=== PATIENT | male | born 1975 ===

== ENCOUNTER 2017-03-29 19:20 | Inpatient (IN) ==
[~2017-03-29 19:20] MED LIST: LIDOCAINE 100 MG/5 ML SYRINGE ONE; ONDANSETRON 4 MG/2 ML VIAL ONE; PROPOFOL 200 MG/20 ML VIAL IV ONE; ROCURONIUM 100 MG/10 ML VIAL IV ONE
[2017-03-29] MEDS ORDERED: metroNIDAZOLE INJ 500 MG in PREMIX 1 EACH IV STA (19:33)
--- NOTE | 2017-03-29 19:33 | General Surg History&Physical ---
Assessment and Plan (1) Acute appendicitis with localized peritonitis Status: Acute Assessment and plan: Impression: Right lower quadrant abdominal pain secondary to acute appendicitis. Plan: Surgery Current Visit: Yes History of Present Illness Chief complaint: Abdominal pain right lower quadrant History of present illness: Mr. Addison is a 41 year old male male who has been in pretty good health had a vague abdominal discomfort last night and this morning was a little bit worse with some nausea but no vomiting. Pain is gotten worse throughout the day and settled into the right lower quadrant were extremely tender especially when he moves around. Went to [facility] where he was found to have elevated white count of 21,[address] scan of the abdomen and pelvis showed early appendicitis. He is tender with guarding in the right lower quadrant so we will go ahead and plan to taken to surgery and try to remove this appendix. Allergies Allergy/AdvReac Type Severity Reaction Status Date / Time No Known Allergies Allergy Unverified 03/29/17 19:29 Medical,Surgical,& Family Hx - Medical History Medical History: noncontributory - Family History Family History: noncontributory - Social History Functional capacity: independent ambulation Exam - Constitutional Vitals: Period Temp Pulse Resp BP Sys/[place] Pulse Ox Last 24 Hr 99 F 86 16 138/87 98 General appearance: mild distress - Head Head exam: Present: normal inspection - ENT ENT exam: Present: normal exam - Neck Neck exam: Present: normal inspection - Respiratory Respiratory exam: Present: clear to auscultation bilaterally, rales - Cardiovascular Cardiovascular exam: Present: RRR - GI/Abdominal GI/Abdominal exam: Present: guarding, hypoactive bowel sounds, tenderness ( Right lower quadrant), soft - Extremities Exam Extremities exam: Present: normal inspection - Back Exam Back exam: Present: normal inspection - Neurological Exam Neurological exam: Present: alert, oriented X3, CN II-XII intact - Skin Skin exam: Present: normal color, warm 12 point system: reviewed and no additional remarkable complaints except as stated Results - Labs Lab Results: I have reviewed the past 24 hour labs - Diagnostic Findings Procedure: CT Abdomen and Pelvis: report reviewed by me (Outside CT positive for early appendicitis)
[2017-03-29] MEDS ORDERED: ONDANSETRON 4 MG/2 ML VIAL IV PRN (19:36)
[2017-03-29] MEDS ORDERED: HYDROmorphone 2 MG/1 ML VIAL IV PRN ×2 (19:36→23:17)
[2017-03-29] MEDS ORDERED: metroNIDAZOLE 500 MG/100 ML PREMIX IV ONE (19:52)
[2017-03-29] MEDS: LACTATED RINGERS 1,000 ML IV SCH (20:03)
--- NOTE | 2017-03-29 20:13 | XRay Report ---
History: Appendicitis. Respiratory preop evaluation Date: 03/29/2017 Study: Chest x-ray PA and lateral Comparison exam: No previous chest x-ray available The cardiomediastinal silhouette and pulmonary vasculature are unremarkable. The lungs and pleural spaces are clear. The osseous structures are unremarkable. Impression: No acute cardiopulmonary process PROCEDURE INTERPRETED AT [facility] DEPARTMENT OF RADIOLOGY Final Report Signed by: Dr. Francesca Baron
[2017-03-29] MEDS ORDERED: BUPIVACAINE MPF 0.25% /EPI 30 ML VIAL ONE (20:16)
[2017-03-29] MEDS ORDERED: TISSUE ADHESIVE 1 EACH APPLICATOR TOP ONE (20:17)
--- NOTE | 2017-03-29 21:56 | Operative Note ---
Date of procedure: 03/29/17 Pre-op diagnosis: Abdominal pain secondary acute appendicitis Post-op diagnosis: other (Acute appendicitis) Procedure: Operative note: Preoperative diagnosis: Right lower quadrant abdominal pain secondary to probable appendicitis Postoperative diagnosis: Acute appendicitis. Procedure: Laparoscopic appendectomy Surgeon Dr. Chandler Salon Leader Viry Penn, INDUSTRIAL REFRIGERATION MECHANIC ACNP Anesthesia general endotracheal with local Brief history: 41-year-old male with the onset of abdominal pain yesterday is progressed into the right lower quadrant with marked tenderness and guarding in that side. CT scan confirms evidence of early appendicitis in that side. At this point would like to go ahead and bring him to surgery to give him some preop antibiotics. Procedure: With patient in the supine position prepped and draped in sterile fashion timeout and antibiotics completed we approach this area the abdomen. Due to its size and large rotund area like to go above the umbilicus by infiltrated with local anesthetic and taken a knife and incising the skin and the subcutaneous tissue and dissecting down to the fascia. I then incised the fascia and carefully entered the peritoneal cavity under direct vision. Placed a 5 mm trocar in and then filled the abdomen with 3 L of CO2. But the scope and I could see that there was evidence of appendicitis and changes in the right lower quadrant area. At that point I went ahead and place a 5 mm trocar in the mid hypogastric area and direct vision there we put him in Trendelenburg and tilted to the left side position. I then could see where the appendix was at and then we elected to go ahead and place a 12 mm trocar and at the mid axillary line about the level of the umbilicus under direct vision. Once we had that in place then I could grasp the appendix and it was inflamed especially at the base. I had to mobilize the cecum a little bit by incising peritoneal attachments laterally in order to bring this so I could get to the base the appendix. With the appendix elevated up I went across the mesoappendix 3 times with vascular Endo ADEEL staplers in order to divide the mesoappendix securely. Once I did that I was able get the appendix up and go across the base of the appendix with a balloon to GSA stapler. We then took the appendix and placed an Endo Catch bag and pulled out the lateral port. Went back in and washed irrigated this right lower quadrant area but did not see any significant bleeding at this time. We washed out the pelvis little bit as best we could see. At that point we then closed the lateral port with a 0 Monocryl with an Endo Close device in order to close that fascia down under direct vision. I placed another 0 Monocryl in the fascia of the external oblique under direct vision and that lateral port also. With that completed removed our other trochars and went back to the umbilicus port at the epigastrium and closed that fascia down with interrupted 0 Monocryl suture. With that completed we washed out subtenons tissue saline solution we closed subtenons tissue 3-0 Vicryl and closed the skin running 4-0 Monocryl Dermabond was applied the patient taken recovery room. Estimated blood loss 20 cc Sponge count correct 2 Drains none Complications none Condition stable satisfactory Anesthesia: GETA, local (0.25% Marcaine with epinephrine mixed [id number] 1% Xylocaine plain) Surgeon / Physician: Arden Chandler Salon Leader: Viry Penn Estimated blood loss: other (30 cc) Specimens: other (Appendix) Condition: stable Disposition: floor Discharge Plan - Discharge Medications No Action No Known Home Medications [No Known Home Medications] - Follow Up or Referral - Forms/Instructions
--- NOTE | 2017-03-29 22:13 | Anesthesia Post-Op ---
Anesthesia Post OP - Post Ansesthetic Evaluation Patient seen in post op: Yes Resp: within normal limits CV: within normal limits Mental: within normal limits Temp: within normal limits Uazo-Ny-Szcxrvuis: within normal limits Nausea and Vomiting: within normal limits Pain: within normal limits
[2017-03-29] MEDS ORDERED: SEVOFLURANE 1 UNIT/15 MINUTE INH ONE (22:19)
[2017-03-29] MEDS ORDERED: ACETAMINOPHEN 1,000 MG/100 ML VIAL IV ONE (22:19)
[2017-03-29] MEDS ORDERED: MIDAZOLAM 2 MG/2 ML VIAL ONE (22:19)
[2017-03-29] MEDS ORDERED: METOPROLOL TARTRATE 5 MG/5 ML VIAL IV ONE ×2 (22:22→22:27)
[2017-03-29] MEDS ORDERED: hydrALAZINE 20 MG/1 ML VIAL ONE (22:33)
[2017-03-29] MEDS ORDERED: hydrALAZINE 20 MG/1 ML VIAL IV ONE (22:34)
[2017-03-29] MEDS ORDERED: ACETAMINOPHEN 325 MG TABLET PO PRN (23:17)
[2017-03-30] MEDS: KETOROLAC 15 MG/1 ML VIAL IV SCH ×5 (00:13→22:24)
[2017-03-30 03:31] LABS: Basophils % 0.1 % (0.0-0.8); Hematocrit 37.1 VOL% (42.0-52.0); Hemoglobin 12.8 GM/DL (14.0-18.0); Immature Granulocytes % 0.7 %; Immature Granulocytes Absolute 0.17 #; Lymphocytes # 2.1 10*3/uL (1.4-4.0); Lymphocytes % 8.9 % (21.2-54.2); Mean Corpuscular HGB Conc 34.5 GM/DL (32-36); Mean Corpuscular Hemoglobin 30 PG (27-34); Mean Corpuscular Volume 87.9 FL (87-102); Mean Platelet Volume 12.2 FL (9.6-12.0); Monocytes # 1.4 10*3/uL (0.11-0.8); Neutrophils # 20.1 10*3/uL (1.4-7.4); Neutrophils % 84.3 % (38.7-73.9); Platelet Count 215 T/CUMM (130-400); Red Blood Count 4.22 MC/CUMM (3.8-5.5); Red Cell Distribution Width 12.6 % (9.3-17.3); White Blood Count 23.8 T/CUMM (4-12)
[2017-03-30] MEDS: metroNIDAZOLE INJ 500 MG in PREMIX 1 EACH IV SCH ×2 (04:02→11:28)
[2017-03-30] MEDS: LACTATED RINGERS 1,000 ML IV SCH ×2 (04:03→18:35)
[2017-03-30 04:23] LABS: Calcium 8.4 MG/DL (8.5-10.1); Osmolality,Calculated 281.5 MOS/KG (273-304); Potassium 3.8 MMOL/L (3.5-5.1)
[2017-03-30 05:56] LABS: Platelet Estimate Normal
[2017-03-30] MEDS: PANTOPRAZOLE 40 MG TABLET PO SCH (08:20)
[2017-03-30] MEDS ORDERED: PANTOPRAZOLE 40 MG VIAL IV SCH (09:00)
--- NOTE | 2017-03-30 09:32 | Event Note ---
03/30/2017. Patient is stable awake and alert tolerating liquids without problems. Abdomen is soft sore around the incisional site but otherwise unremarkable. Bowel sounds are present no bowel movement to date. His white count still elevated at 23,000 but crits good and stable as well as rest of his labs. Will advance his diet and consider letting him go home tomorrow if everything looks stable at that time.
[2017-03-30] MEDS ORDERED: ENOXAPARIN 40 MG/0.4 ML SYRINGE SUBCUT SCH (15:47)
[2017-03-30] MEDS: DOCUSATE SODIUM 100 MG CAPSULE PO SCH (21:05)
[2017-03-31] MEDS: LACTATED RINGERS 1,000 ML IV SCH ×2 (02:35→10:50)
[2017-03-31] MEDS: KETOROLAC 15 MG/1 ML VIAL IV SCH (04:22)
[2017-03-31 05:57] LABS: Albumin 2.9 G/DL (3.4-5.0); Bilirubin,Total 0.9 MG/DL (0.2-1.0); Calcium 7.7 MG/DL (8.5-10.1); Osmolality,Calculated 280.3 MOS/KG (273-304); Potassium 3.7 MMOL/L (3.5-5.1)
[2017-03-31 06:54] VITALS: BP 162/77
[2017-03-31] MEDS: DOCUSATE SODIUM 100 MG CAPSULE PO SCH (08:33)
[2017-03-31] MEDS: PANTOPRAZOLE 40 MG TABLET PO SCH (08:33)
--- NOTE | 2017-03-31 09:25 | Discharge Summary ---
Hospital Course - Hospital Course Hospital Course: Discharge summary: Discharge diagnosis: Abdominal pain secondary to acute appendicitis. Procedure: Laparoscopic appendectomy. Brief summary 41-year-old male who came in because of the onset of abdominal pain that has now settled in the right lower quadrant with guarding. Present. CT scan was positive for appendicitis and his white count was elevated. He went to the operating room with a laparoscopic appendectomy with no perforation or purulence around but a thickened appendix in this area. He tolerated the surgery fairly well start liquids next day and then advanced to solid food has had a small bowel movement today. He is moderate discomfort in his wounds look clean and dry at this time. Continues tomorrow run a slight elevated white count about 20,000 and we may send him home a little antibiotics in addition to what he has other meds at this time. He is doing fairly well so will discharge him and follow him up in couple weeks in the office get his clips out. Given instruction as to activity and care of the wounds. - Time spent with patient Time with patient DS: Less than 30 minutes Diagnosis - Discharge Diagnosis (1) Acute appendicitis with localized peritonitis Status: Resolved Specialty Discharge - Follow Up or Referrals Follow up with: Arden Chandler MD [Physician] - 2 Weeks - Speciality Discharge Instructions Surgery Instructions: 1. May shower. 2. Keep clean dressing over the incisions. 3. No driving for the next week we can ride in a car and going downstairs. 4. No heavy lifting or straining. 5. Will discuss going back to work in 2 weeks after comes to the clinic. Discharge Plan - Discharge Data Disposition: Disch To Home/Self Care Condition at Discharge: Stable Discharge Diet: advance to your usual diet Activity: increase activity as tolerated, no lifting, no prolonged standing, other (No straining) Hygiene: may shower Weight Bearing at Discharge: full weight bearing Driving: not for (1 week) Contact your physician if you experience:: fever over 101, Redness or swelling, Nausea/Vomiting, pain uncontrolled by pain medications Wound / Dressing Care Instructions: Wound care to the incisions. Shower with soap of choice. Keep a light dressing over the incisions to protect it from the clothes - Discharge Medications New Acetaminophen Tab [Tylenol Tab] 650 mg PO Q6H PRN tablet PRN Reason: Pain Mild (1-3) Docusate Sodium Cap [Colace Cap] 100 mg PO DAILY #20 capsule HYDROcodone/ACETAMIN 7.5-325 [Stow 7.5-325] 1 tablet PO Q6H PRN #30 tablet PRN Reason: Pain Moderate (4-7) Ketorolac Tab [Toradol Tab] 10 mg PO BID #10 tablet metroNIDAZOLE TAB [Flagyl Cap/Tab] 500 mg PO BID #10 tablet Ciprofloxacin Tab [Cipro Tab] 500 mg PO BID #10 tablet - Follow Up or Referral Follow Up: Arden Chandler MD [Physician] - - Forms/Instructions Forms: Acute Care Work/School Release Instructions: Laparoscopic Appendectomy (DC) Exam - Constitutional Vitals: Period Temp Pulse Resp BP Sys/[place] Pulse Ox Last 24 Hr 97.5 F-99.3 F 79-90 18-20 136-162/64-89 93-100 General appearance: no acute distress - Head Head exam: Present: normal inspection - ENT ENT exam: Present: normal exam - Neck Neck exam: Present: normal inspection - Respiratory Respiratory exam: Present: clear to auscultation bilaterally, rales - Cardiovascular Cardiovascular exam: Present: regular rate and rhythm - GI/Abdominal GI/Abdominal exam: Present: hypoactive bowel sounds, tenderness (Tenderness about the incisions), soft, other (Incisions are clean and dry) - Extremities Exam Extremities exam: Present: normal inspection - Back Exam Back exam: Present: normal inspection - Neurological Exam Neurological exam: Present: alert, oriented X3, CN II-XII intact - Psychiatric Psychiatric exam: Present: normal affect, normal mood, anxious - Skin Skin exam: Present: normal color, warm, dry Discharge Results Labs on day of discharge: Labs from last 24 hours 03/31/17 03/31/17 04:52 04:52 Sodium 141 Potassium 3.7 Chloride 107 Carbon Dioxide 27 Anion Gap 10.7 BUN 11 Creatinine 0.70 GFR Calculation 162 BUN/Creatinine Ratio 15.00 Glucose 108 H Hemoglobin A1c 6.6 H Calculated Osmolality 280.3 Calcium 7.7 L Magnesium 2.0 Total Bilirubin 0.90 AST 16 ALT 29 Alkaline Phosphatase 69 Total Protein 6.0 L Albumin 2.9 L Globulin 3.1 Albumin/Globulin Ratio 0.9 L DS: Provider Date of admission: 03/29/17 19:36 Primary care physician: Jaylyn Reaves MD Attending physician on admission: Arden Chandler MD Consults: 03/29/17 19:35 Consult to Anesthesiology [CONS] Routine Consulting Provider: Reason for Anesthesiology: Pre-op Clearance Discharging clinician: Arden Chandler MD Expected date of discharge: 03/31/17
--- NOTE | 2017-04-02 11:16 | Pathology Report from [facility] ---
[facility] [place] ACCESSION # : [id number] PATIENT NAME : Chris Teresa ORDERING DR : JOYCE YE MD CLINICAL HX: Acute appendicitis w/localized peritonitis POST-OP DX: Same SPECIMEN INFO: Appendix GROSS DESCRIPTION: Received in formalin labeled CHRIS TERESA is a appendix with attached appendiceal fat measuring 11.1 x 1.2 cm. The serosa is quinonez reddy. The lumen is focally dilated. There is a 1.7 cm fecalith present. No perforations are identified. Ropewalk Rope Maker sections are submitted in one cassette. DIAGNOSIS FOR CHRIS TERESA: APPENDIX, APPENDECTOMY: Acute appendicitis with diffuse serositis. COLLECTED DATE: 03/31/2017 [facility] [place] REPORT DATE: 04/02/2017 ELECTRONICALLY SIGNED BY: Bharat Wheeler M.D. 04/02/2017 - 10:05:36 [facility]
--- NOTE | 2017-04-04 03:07 | Pathology Report from [facility] ---
[facility] [place] ACCESSION # : [id number] PATIENT NAME : Chris Teresa ORDERING DR : JOYCE YE MD CLINICAL HX: Acute appendicitis w/localized peritonitis POST-OP DX: Same SPECIMEN INFO: Appendix GROSS DESCRIPTION: Received in formalin labeled CHRIS TERESA is a appendix with attached appendiceal fat measuring 11.1 x 1.2 cm. The serosa is quinonez reddy. The lumen is focally dilated. There is a 1.7 cm fecalith present. No perforations are identified. Light Rail Signal Technician sections are submitted in one cassette. DIAGNOSIS FOR CHRIS TERESA: APPENDIX, APPENDECTOMY: Acute appendicitis with diffuse serositis. COLLECTED DATE: 03/31/2017 [facility] [place] REPORT DATE: 04/02/2017 ELECTRONICALLY SIGNED BY: Bharat Wheeler M.D. 04/02/2017 - 10:05:36 [facility]
== END 2017-03-31 10:30 | disposition home or self-care (01) | DRG 340 ==
LOC: EDUNIT# → EDBD → N.ED 19:20 → N.EDINP 19:36 → N.3E 20:30
PROVIDERS: ADMIT Specialist; ATTEND Specialist